=== PATIENT | male | born 1965 | race Caucasian/White ===

== ENCOUNTER 2018-10-09 03:46 | Emergency (ER) | payer OTHER ==
[~2018-10-09] VITALS: Ht 180.3 cm; Wt 109.7 kg
[2018-10-09] MEDS ORDERED: AMOX500C2 PO (04:02)
[2018-10-09 04:25] VITALS: BP 122/81
== END 2018-10-09 04:28 | disposition home or self-care (01) ==
LOC: ER 03:47
DX: H66.92 Otitis media, unspecified, left ear (principal); H72.92 Unspecified perforation of tympanic membrane, left ear; Z79.899 Other long term (current) drug therapy
CPT/HCPCS: 99283

== ENCOUNTER 2019-02-01 16:32 | Emergency (ER) | payer OTHER ==
[~2019-02-01] VITALS: Ht 180.3 cm; Wt 138.6 kg
[2019-02-01 16:38] VITALS: BP 154/107
[2019-02-01] MEDS ORDERED: HYDR-3965 PO (17:18)
[2019-02-01] MEDS ORDERED: HYDROcodone/acetaminophen 5mg/325mg tablet PO ONE (17:20)
== END 2019-02-01 17:36 | disposition home or self-care (01) ==
LOC: ER 16:33
DX: G89.18 Other acute postprocedural pain (principal)
CPT/HCPCS: 99283